=== PATIENT | female | born 1955 | race Asian ===

== ENCOUNTER 2018-01-29 06:06 | Day surgery (SDC) | payer OTHER ==
[~2018-01-29] VITALS: Ht 157.5 cm; Wt 70.8 kg
[2018-01-29] VITALS (7 sets, daily range): BP systolic 115–153; BP diastolic 63–79
[~2018-01-29 06:06] MED LIST: ceFAZolin 1gm in D5W 55ml IVP ONE; celeBREX 200mg Cap **SURGERY PATIENTS ONLY ORAL ONE; oxyCONTIN 20mg tab ORAL ONE
[2018-01-29] MEDS ORDERED: AMLODIPINE BESYL5 MG ORAL (06:46)
[2018-01-29] MEDS ORDERED: Lidocaine 1% MPF 10mg/ml 5ml ONE (07:59)
[2018-01-29] MEDS ORDERED: Midazolam 2mg/2ml Inj ONE (07:59)
[2018-01-29] MEDS ORDERED: Ketorolac 30mg Inj ONE ×2 (07:59→08:32)
[2018-01-29] MEDS ORDERED: Propofol 200mg/20ml IV ONE (07:59)
[2018-01-29] MEDS ORDERED: fentaNYL 100 mcg/2 mL IV ONE (07:59)
[2018-01-29] MEDS ORDERED: Morphine Sulfate PF 10 ML ONE (08:32)
[2018-01-29] MEDS ORDERED: Lidocaine 1% 10mg/ml/Epi 0.005mg/ml 30ml vial INJ ONE (08:32)
[2018-01-29] MEDS ORDERED: Bupivacaine 0.25% Inj 30ml INJ ONE (08:32)
[2018-01-29] MEDS ORDERED: EPINEPHrine 1mg/1ml Amp ONE (08:32)
[2018-01-29] MEDS ORDERED: Kenalog-40 1ml Vial ONE (08:32)
--- NOTE | 2018-01-29 08:43 | Operative Note - PDOC ---
Operative Note Operative Note Pre-op Diagnosis: left knee possible menisuc tear Procedure: see op report Post-op Diagnosis: same as pre-op plus Operative Findings: consistent w/pre-op dx studies Anesthesia: MAC Specimen: none Complications: none Estimated Blood Loss: none Implant(s) used?: No Reyes George MD Jan 29, 2018 08:43
--- NOTE | 2018-01-29 08:43 | Pre-Procedure Note/Attestation ---
Pre-Procedure Note/Attestation Complete Prior to Procedure Planned Procedure: left Procedure Narrative: knee arthroscopy, possible menisectomy Indications for Procedure Pre-Operative Diagnosis: left knee possible menisuc tear Attestation I attest that I discussed the nature of the procedure; its benefits; risks and complications; and alternatives (and the risks and benefits of such alternatives ), prior to the procedure, with the patient (or the patient's legal retail account representative). I attest that, if there was a reasonable possibility of needing a blood transfusion, the patient (or the patient's legal retail account representative) was given the [facility] standardized written summary, pursuant to the Xavier Radha Blood Safety Act ([place] Health and Safety Code # 1645, as amended). I attest that I re-evaluated the patient just prior to the surgery and that there has been no change in the patient's H&P, except as documented below: Reyes George MD Jan 29, 2018 08:43
[2018-01-29] MEDS ORDERED: LR 1000ml ONE (08:45)
[2018-01-29] MEDS ORDERED: HYDROmorphone 1mg/ml Carpuject SUBQ PRN (08:45)
[2018-01-29] MEDS ORDERED: D5 1/2NS 1,000 ML IV SCH (08:45)
[2018-01-29] MEDS ORDERED: Tylenol #3 tab (300mg/30mg) ORAL PRN (08:45)
[2018-01-29] MEDS ORDERED: Norco 5mg/325mg tab ORAL PRN (08:45)
[2018-01-29] MEDS ORDERED: Duramorph PF 10mg/10ml amp EPIDUR ONE (08:57)
[2018-01-29] MEDS ORDERED: fentaNYL 100 mcg/2 mL IV PRN (09:15)
[2018-01-29] MEDS ORDERED: LR 1000ml 1,000 ML IVLG SCH (09:15)
[2018-01-29] MEDS ORDERED: Ketorolac 30mg Inj IV PRN (09:15)
[2018-01-29] MEDS ORDERED: DiphenhydrAMINE 50mg/ml Inj IVP PRN (09:15)
--- NOTE | 2018-01-29 09:15 | Anethesia Preoperative Eval ---
Anesthesia Pre-op PMH/ROS General Date of Evaluation: Jan 29, 2018 Time of Evaluation: 08:40 Anesthesiologist: Justin ASA Score: ASA 2 Mallampati Score Class I : Soft palate, uvula, fauces, pillars visible Class II: Soft palate, uvula, fauces visible Class III: Soft palate, base of uvula visible Class IV: Only hard plate visible Mallampati Classification: Class II Surgeon: George Diagnosis: L knee pain Surgical Procedure: L knee scope Anesthesia History: none Family History: no anesthesia problems Allergies: Coded Allergies: No Known Allergies (Unverified , 01/28/18) Past Medical History Cardiovascular: Reports: HTN; Denies: CAD, VT, valve dz, arrhythmia, other Pulmonary: Denies: asthma, COPD, HARSH, other Gastrointestinal/Genitourinary: Reports: GERD; Denies: CRI, ESRD, other Neurologic/Psychiatric: Denies: dementia, CVA, depression/anxiety, TIA, other Endocrine: Denies: DM, hypothyroidism, steroids, other HEENT: Denies: cataract (L), cataract (R), glaucoma, PICAYUNE (L), PICAYUNE (R), other Hematology/Immune: Reports: anemia; Denies: DVT, bleeding disorder, other Musculoskeletal/Integumentary: Denies: OA, RA, DJD, DDD, edema, other PMH Narrative: as above PSxH Narrative: x3 hysterectomy, bone marrow Bx. Anesthesia Pre-op Phys. Exam Physician Exam Last Vital Signs Date Time Temp Pulse Resp B/P (MAP) Pulse Ox O2 Delivery O2 Flow Rate FiO2 01/29/18 06:50 97.3 54 20 134/79 (97) 98 97.3 01/29/18 06:46 Room Air Constitutional: NAD Neurologic: CN 2-12 intact Cardiovascular: RRR, no M/R/G Respiratory: CTA Gastrointestinal: S/NT/ND Airway Exam Mallampati Score: Class II MO: full Neck: flexible ROM: full Teeth: missing Dentures: no upper, no lower Anesthesia Pre-op A/P Labs see chart Studies Pre-op Studies: EKG - NSR Risk Assessment & Plan Assessment: ASA 2 Plan: GA with LMA Status Change Before Surgery: No Pre-Antibiotics Drug: Ancef 1gr. Given Within 1 Hr of Incision: Yes Time Given: 09:14 Gutierrez Anderson MD Jan 29, 2018 09:15
--- NOTE | 2018-01-29 09:45 | Immediate Post-Op Evaluation ---
Immediate Post-Op Evalulation Immediate Post-Op Evalulation Procedure: L knee arthroscopy, meniscectomy Date of Evaluation: Jan 29, 2018 Time of Evaluation: 09:44 IV Fluids: 1000 Blood Products: none Estimated Blood Loss: min Urinary Output: none Blood Pressure Systolic: 126 Blood Pressure Diastolic: 71 Pulse Rate: 56 Respiratory Rate: 20 O2 Sat by Pulse Oximetry: 99 Temperature (Fahrenheit): 97.6 Pain Score (1-10): 2 Nausea: No Vomiting: No Complications NONE Patient Status: reacts, patent, none Hydration Status: adequate Gutierrez Anderson MD Jan 29, 2018 09:45
--- NOTE | 2018-01-29 12:21 | 48 Hour Post Anesthesia Eval ---
Post Anesthesia Evaluation Procedure: L knee arthroscopy, meniscectomy Date of Evaluation: Jan 29, 2018 Time of Evaluation: 12:20 Blood Pressure Systolic: 132 0: 76 Pulse Rate: 68 Respiratory Rate: 22 Temperature (Fahrenheit): 97.8 O2 Sat by Pulse Oximetry: 98 Airway: patent Nausea: No Vomiting: No Pain Intensity: 1 Hydration Status: adequate Cardiopulmonary Status: stable Mental Status/LOC: patient returned to baseline Follow-up Care/Observations: n/a Post-Anesthesia Complications: none Follow-up care needed: ready to discharge Gutierrez Anderson MD Jan 29, 2018 12:21
--- NOTE | 2018-01-29 16:15 | Operative Note - Dictated ---
DATE OF OPERATION: 01/29/2018 PREOPERATIVE DIAGNOSIS: Right knee internal derangement and meniscal tear. POSTOPERATIVE DIAGNOSES: 1. Grade 2 chondral damage, medial patellar facet. 2. Intrameniscal degeneration of posterior horn medial meniscus. 3. Hypertrophic fat pad/phlebitis with grade 2 chondral damage of medial femoral condyle. PROCEDURES: 1. Right knee diagnostic arthroscopy and synovectomy of medial and lateral patellofemoral compartment. 2. Gentle chondroplasty, medial patellofemoral compartment. SURGEON: Reyes George M.D. ANESTHESIA: MAC. INDICATION FOR PROCEDURE: The patient is a pleasant 62-year-old female, who has had progressive chronic right knee pain after an accident. She failed conservative treatment. She had MRI consistent with intrameniscal degeneration of posterior horn medial meniscus. Given that she failed conservative treatment and still has significant pain and discomfort, elected to undergo right knee diagnostic possible meniscectomy, synovectomy, and chondroplasty based on intraoperative findings. Risks, limitations, expectations, and complications of procedure were discussed in detail. All questions addressed. DESCRIPTION OF PROCEDURE: After informed consent was obtained, the patient was brought to the operating room and placed supine under monitored anesthesia control. Tourniquet was applied to the left proximal thigh. Left leg was prepped and draped in a sterile manner. Time-out was performed. The bursa was injected with 0.25% Marcaine with epinephrine. Esmarch was used to exsanguinate the extremity. Inferolateral stab incision was then made. Trocar was introduced in to the knee joint. There is hypertrophic fat pad in the retropatellar space area. There was some chondral damage in the medial patellar facet. Medial compartment was entered. There was hypertrophic fat pad in synovial tissue. Therefore, a medial working portal was established and an excision of the fat pad and synovectomy was performed of the medial intercondylar notch and lateral compartment. Medial compartment was entered. There was some intrameniscal degeneration of posterior horn medial meniscus. This area was probed to see if there was any betty tear. The knee was flexed and there was some grade 2 chondral damage in posterior femoral condyle. Gentle chondroplasty was performed. The ACL was probed and noted to be intact. Lateral compartment was entered and free of any meniscal chondral damage. Camera was repositioned in the patellofemoral compartment. Excision of fat pad in the retropatellar space was completed. Camera was then placed in the medial working portal. Gentle chondroplasty of the medial patellar facet was completed. Once that was done, the instruments were removed. Portal sites was closed using 3-0 Monocryl sutures. Steri-Strips and a sterile dressing were applied. The patient was awoken and taken to recovery room with stable vital signs. ESTIMATED BLOOD LOSS: None. COMPLICATIONS: None. SPECIMENS: None. IMPLANTS: None. Reyes George M.D. DR: RICHARD JOB#: [id number] CC:
== END 2018-01-29 14:10 | disposition home or self-care (01) ==
LOC: SUR 06:06
DX: M79.4 Hypertrophy of (infrapatellar) fat pad (principal); M94.9 Disorder of cartilage, unspecified; M23.306 Other meniscus derangements, unspecified meniscus, right knee; I80.9 Phlebitis and thrombophlebitis of unspecified site
CPT/HCPCS: 29876; J0171; J0690; J1885; J2250; J2274; J2704; J3010; J3301; J3490; J7120; 94003; 94150